=== PATIENT | female | born 1955 | race Caucasian/White ===

== ENCOUNTER 2021-09-18 13:44 | Inpatient (IN) | payer OTHER, MEDICARE ==
[~2021-09-18] VITALS: Ht 168.9 cm; Wt 86.4 kg
[2021-09-18] MEDS ORDERED: dilTIAZem 25 MG/5 ML VIAL IVP ONE (14:15)
--- NOTE | 2021-09-18 14:15 | PHYS DOC ---
General Adult EDM: Chief Complaint: CHEST PAIN HPI: HPI: 66-year-old female presents with rapid heart rate. The patient was feeling a little queasy this morning but she did not think much of it and went to work. While she was at work she felt more fatigued than usual and she was not doing anything strenuous. She went home for lunch and while she was there noticed that her heart rate felt fast. She thought she might go back to work but when she got up and prepared to go get ready she felt fatigued and it seemed like her heart rate was even faster. She decided come in for evaluation. She has no history of atrial fibrillation or any other cardiac condition. She denies diaphoresis or shortness of breath. The patient was feeling well prior to this episode. She takes medication for blood pressure and cholesterol. Review of Systems: Review of Systems: Constitutional: Denies fever or chills. Fatigue. Eyes: Denies change in visual acuity HENT: Denies nasal congestion or sore throat Respiratory: Denies cough or shortness of breath Cardiovascular: Chest pain GI: Denies abdominal pain, nausea, vomiting, bloody stools or diarrhea : Denies dysuria Musculoskeletal: Denies back pain or joint pain Integument: Denies rash Neurologic: Denies headache, focal weakness or sensory changes Endocrine: Denies polyuria or polydipsia Lymphatic: Denies swollen glands Psychiatric: Denies depression or anxiety Current Medications: Current Meds: Current Medications Medications (Trade) Dose Ordered Sig/Aaliyah Start Time Stop Time Status Last Admin Dose Admin Diltiazem HCl (Cardizem Iv Push) 20 mg 1X ONCE 09/18/21 14:15 09/18/21 14:16 Allergies: Allergies: Allergies Coded Allergies Type Severity Reaction Last Updated Verified No Known Drug Allergies 09/13/17 No Physical Exam: PE: Constitutional: Well developed, well nourished, no acute distress, non-toxic appearance. [] HENT: Normocephalic, atraumatic, bilateral external ears normal, oropharynx moist, no oral exudates, nose normal. [] Eyes: PERRLA, EOMI, conjunctiva normal, no discharge. [] Neck: Normal range of motion, no tenderness, supple, no stridor. [] Cardiovascular: Heart rate 131, irregular rhythm, no murmur [] Lungs & Thorax: Bilateral breath sounds clear to auscultation [] Abdomen: Bowel sounds normal, soft, no tenderness, no masses, no pulsatile masses. [] Skin: Warm, dry, no erythema, no rash. [] Back: No tenderness, no CVA tenderness. [] Extremities: No tenderness, no cyanosis, no clubbing, ROM intact, no edema. [] Neurologic: Alert and oriented X 3, normal motor function, normal sensory function, no focal deficits noted. [] Psychologic: Affect normal, judgement normal, mood normal. [] EKG: EKG: Irregular rhythm, rate 131, normal axis, no ST elevation or depression, atrial fibrillation. [] Radiology/Procedures: Radiology/Procedures: [] Impressions: EXAM: Chest, single view. HISTORY: Chest pain. COMPARISON: None. FINDINGS: A frontal view of the chest obtained. There is no infiltrate, pleural effusion or pneumothorax. The heart is normal in size. IMPRESSION: No acute pulmonary finding. Electronically signed by: Trina Sarmiento MD (09/18/2021 2:15 PM) [id number] DICTATED AND SIGNED BY: TRINA SARMIENTO MD DATE: 09/18/211414 CC: MARIA DOLORES BAILEY DO; GENEVIEVE COHN MD ~MTH0 0 Heart Score: C/O Chest Pain: Yes HEART Score for Chest Pain: HEART Score for Chest Pain Response (Comments) Value History Slighlty/Non-Suspicious 0 ECG Nonspecific Repolarizatio 1 Age > 65 2 Risk Factors 1 or 2 Risk Factors 1 Total 4 Risk Factors: Risk Factors: DM, Current or recent (<one month) smoker, HTN, HLP, family history of CAD, obesity. Risk Scores: Score 0 - 3: 2.5% MACE over next 6 weeks - Discharge Home Score 4 - 6: 20.3% MACE over next 6 weeks - Admit for Clinical Observation Score 7 - 10: 72.7% MACE over next 6 weeks - Early Invasive Strategies Course & Med Decision Making: Course & Med Decision Making Pertinent Labs and Imaging studies reviewed. (See chart for details) The patient was given 20 mg of Cardizem and her heart rate improved. We will start the patient on a Cardizem drip. The patient's urinalysis is positive for infection. I will treat her with Rocephin. I will admit the patient to the hospital for new onset atrial fibrillation. I spoke with the hospitalist, Dr. Norman and he has accepted the patient for admission. [] Dragon Disclaimer: Dragon Disclaimer: This electronic medical record was generated, in whole or in part, using a voice recognition dictation system. Departure Departure: Impression: Primary Impression: New onset a-fib Additional Impression: UTI (urinary tract infection) Qualified Codes: N30.01 - Acute cystitis with hematuria Disposition: ADMITTED INPATIENT Admitting Physician: Jakub Norman Condition: STABLE Referrals: GENEVIEVE COHN MD (PCP) MARIA DOLORES BAILEY DO Sep 18, 2021 14:15
--- NOTE | 2021-09-18 14:17 | RAD ---
EXAM: Chest, single view. HISTORY: Chest pain. COMPARISON: None. FINDINGS: A frontal view of the chest obtained. There is no infiltrate, pleural effusion or pneumotho rax. The heart is normal in size. IMPRESSION: No acute pulmonary finding. Electronically signed by: Trina Naqvi MD (09/18/2021 2:15 PM) [id number]
[2021-09-18 14:19] LABS: BASO # 0.1 x10^3/uL (0.0-0.2); BASO % 1 % (0-3); EOS # 0.1 x10^3/uL (0.0-0.7); EOS % 1 % (0-3); HEMATOCRIT 41.8 % (36.0-47.0); LYMPH # 2.6 x10^3/uL (1.0-4.8); LYMPH % 31 % (24-48); MEAN CORPUSCULAR HEMOGLOBIN 29 pg (25-35); MEAN CORPUSCULAR HGB CONC 34 g/dL (31-37); MEAN CORPUSCULAR VOLUME 87 fL (79-100); MONO # 0.6 x10^3/uL (0.0-1.1); MONO % 7 % (0-9); NEUT # 5.1 x10^3uL (1.8-7.7); NEUT % 60 % (31-73); PLATELET COUNT 285 x10^3/uL (140-400); RED BLOOD COUNT 4.83 x10^6/uL (3.50-5.40); RED CELL DISTRIBUTION WIDTH 14.4 % (11.5-14.5); WHITE BLOOD COUNT 8.5 x10^3/uL (4.0-11.0)
--- NOTE | 2021-09-18 14:24 | EKG ---
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
[2021-09-18 14:28] LABS: CALCIUM 9.4 mg/dL (8.5-10.1); CREATININE 1.1 mg/dL (0.6-1.0); GFR 49.4; POTASSIUM 3.8 mmol/L (3.5-5.1)
[2021-09-18] MEDS ORDERED: IV NORMAL SALINE 1,000ML 1,000 ML IV ONE (14:30)
[2021-09-18 14:34] LABS: ALBUMIN 3.8 g/dL (3.4-5.0); ALBUMIN/GLOBULIN RATIO 0.8 (1.0-1.7); TOTAL BILIRUBIN 0.3 mg/dL (0.2-1.0); TOTAL PROTEIN 8.3 g/dL (6.4-8.2)
[2021-09-18] MEDS ORDERED: ONDANSETRON PF 4 MG/2 ML VIAL. IVP PRN (15:00)
[2021-09-18] MEDS ORDERED: dilTIAZem VIAL 125 MG in IV NORMAL SALINE 100ML 100 ML IV PRN (15:00)
[2021-09-18 15:44] LABS: CLARITY,URINE CLEAR; COLOR,URINE COLORLESS
[2021-09-18 15:45] LABS: BACTERIA,URINE FEW /HPF (0-FEW); BILIRUBIN,URINE NEG (NEG); GLUCOSE,URINE NEG (NEG); NITRITE,URINE NEG (NEG); RBC,URINE 0 /HPF (0-2); SQUAMOUS EPITHELIAL CELL,UR OCC /LPF; UROBILINOGEN,URINE 0.2 mg/dL (0.2 mg/dL)
--- NOTE | 2021-09-18 16:29 | HP ---
DATE OF SERVICE: 09/18/2021 ADMIT DATE: 09/18/2021 HISTORY OF PRESENT ILLNESS: The patient is a 66-year-old female patient who presented to the Emergency Room with a complaint of racing heart. She is complaining of headache, chest heaviness, shortness of breath, felt the heart is racing, she also felt lightheaded. She felt a little queasy this morning, but she did not think much of it and went to work. While there, she felt more fatigued than usual, although she was not doing anything strenuous. She went home for lunch and while she was there, noted that her heart rate felt fast. She thought she might go back to work, but she got up to go get ready, she felt fatigued and seems that her heart rate was also even faster. She decided to come for evaluation to the Emergency Room, she was evaluated and was found to be in atrial fibrillation with rapid ventricular response. She had an EKG, which confirmed that, she had a loading dose of diltiazem that slowed her heart rate and was started on a Cardizem drip. She would be admitted for further evaluation and treatment. PAST MEDICAL HISTORY: Significant for hypertension, hyperlipidemia, obstructive sleep apnea. PAST SURGICAL HISTORY: Significant for tonsillectomy and had had colonoscopy x2. ALLERGIES: SHE IS ALLERGIC TO BELLADONNA. MEDICATIONS: She is on amlodipine 5 mg once a day, atorvastatin 20 mg once a day. She is on fish oil 2000 mg once a day. She is on multivitamin and CoQ10. FAMILY HISTORY: She has 5 sisters. Her older sister has atrial fibrillation, all of them have hypertension. Her father of emphysema at age of 68 and mother of colon cancer at the age of 76. SOCIAL HISTORY: She is , has 1 son from a previous marriage. She does not smoke. Drinks alcohol very occasionally. Does not use any drugs. 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 REVIEW OF SYSTEMS: The patient denied any blurring of vision, but she does have cataract to her right eye for which she is scheduled to be treated surgically. She denied any glaucoma or macular degeneration. Denied any earache, tinnitus or sensory deafness. Denied any nosebleed, stuffy nose or postnasal drip. Denied any sore throat, sore tongue, toothache, hoarseness of voice or difficulty swallowing. Denied any nausea, vomiting, diarrhea or constipation. Denied any hematemesis, melena or hematochezia. She denies any dysuria, frequency or hematuria. Denied any chest pain, shortness of breath, orthopnea or paroxysmal nocturnal dyspnea. Denied any cough, phlegm or hemoptysis. PHYSICAL EXAMINATION: GENERAL: When I saw her in the Emergency Room, she was resting slightly propped up in bed, in no apparent respiratory distress. There was no pallor, jaundice, cyanosis, or thyromegaly. No jugular venous distention. No lower limb edema. VITAL SIGNS: Her heart rate was initially 148, irregularly irregular, blood pressure is 153/94, temperature was 98.2, respiratory rate 20, and oxygen saturation was 95%. HEAD, EYES, EARS, NOSE, AND THROAT: Normocephalic, atraumatic. NECK: Supple. HEART: Showed regular first heart sound, normal second heart sound. No gallop, rub or murmur. CHEST: Clear to auscultation, no crepitation or rhonchi. ABDOMEN: Distended, soft, nontender. NEUROLOGIC: She was grossly intact. LABORATORY DATA: Showed a white cell count of 8500, hemoglobin 14, hematocrit 42, MCV 87 and platelet count of 285,000. Her chemistry showed a serum sodium 141, potassium 3.8, chloride 106, bicarbonate 23, anion gap of 12, BUN 15, creatinine 1.1. Estimated GFR was 49 mL per minute. His glucose 136, calcium was 9.4. Total bilirubin, AST, ALT normal, alkaline phosphatase were high. Her total protein was 8.3, albumin was 3.8. Her EKG showed that she had irregularly irregular heart rate of 151 with normal axis, no ST segment elevation or depression. Her chest x-ray showed that there is no infiltrate, pleural effusion, or pneumothorax. The heart size is normal. ASSESSMENT AND PLAN: The patient was admitted with a new onset of atrial fibrillation, for which she received a bolus of Cardizem will be started on a Cardizem drip. She probably needs to be started on anticoagulation. Other medical problems include hypertension, hyperlipidemia, obstructive sleep apnea. We will reconcile all her medications and check her thyroid function tomorrow and consult the windows server architect for further evaluation and treatment. KAITLIN/IDALIA/AYAAN DR: Omari TID: [id number]
--- NOTE | 2021-09-18 19:10 | NUR ---
The patient, GAUDENCIO NUNEZ, 66 y/o, F admitted by YU RUIZ MD, was given written information regarding hospital policies, unit procedures and contact persons. Valuables were checked and logged. Call light at bedside.
[2021-09-18 19:26] VITALS: BP 136/95
[2021-09-18] MEDS ORDERED: OMEG-152 PO (19:49)
[2021-09-18] MEDS ORDERED: AMLO5TAB4 PO (19:49)
[2021-09-18] MEDS ORDERED: LOVA20TA2 PO (19:49)
[2021-09-18] MEDS ORDERED: UBID200C7 PO (19:49)
[2021-09-18 20:00] VITALS: BP 130/88
--- NOTE | 2021-09-18 20:08 | NUR ---
Nursing Note Pt assisted to toilet fully ambulatory, pleasant alert and oriented. Lines and IV intact. Voided no difficulty.
[2021-09-18 21:00] VITALS: BP 128/80
[2021-09-18] MEDS ORDERED: ATORVASTATIN CALCIUM 10 MG TABLET. PO SCH (21:00)
[2021-09-18] MEDS ORDERED: OMEGA-3 FATTY ACIDS/FISH OIL 1,000 MG CAPSULE. PO SCH (21:00)
[2021-09-18] MEDS: APIXABAN 5 MG TABLET. PO SCH (21:16)
[2021-09-18 22:00] VITALS: BP 118/74
[2021-09-18 23:00] VITALS: BP 127/73
[2021-09-19] VITALS (14 sets, daily range): BP systolic 106–120; BP diastolic 58–82
--- NOTE | 2021-09-19 05:26 | EKG ---
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
--- NOTE | 2021-09-19 05:53 | NUR ---
[facility] cardio consulted at this time with their answering service.
--- NOTE | 2021-09-19 05:59 | NUR ---
Pt has converted to NSR. EKG confirmed.
--- NOTE | 2021-09-19 06:31 | PDOC2 ---
JAMES LITTLEJOHN ANAESTHESIOLOGIST 09/19/21 0631: CARDIAC CONSULT DATE OF CONSULT DOS: DATE: 09/19/21 TIME: 06:26 REASON FOR CONSULT Reason for Consult New AFIB with RVR REFERRING PHYSICIAN Referring Physician Dr. Norman SOURCE Source: Chart review, Patient HPI History of Present Illness This is a 66 yo female who presented secondary to palpitations, rapid heart beat. Was noted in AFIB, which prompted this consult. Patient reports she went to work yesterday as usual. Mid morning, felt her heart beating fast. Went home and had lunch. Reports she stood up to go back to work and her palpitations became more intense and had pressure in her central chest so she came to the ED for further evaluation and treatment. No diaphoresis or SOA. No prior h/o CAD or known arrhythmias. Does reports feeling her heart beat fast occasionally in the past, but nothing significant or sustaining. She converted back to SR overnight on Cardizem gtt and has been maintaining. Reports feeling well this morning. No recent illness or fevers. Did have COVID back in April but did not require hospitalization or oxygenation. PAST MEDICAL HISTORY Cardiovascular: HTN, hyperipidemia PAST SURGICAL HISTORY Past Surgical History: Tonsillectomy FAMILY HISTORY Family History: Cancer (colon), Stroke, Other (AFIB, sister) SOCIAL HISTORY Smoke: No ALCOHOL: none Drugs: None CURRENT MEDICATIONS Current Medications Current Medications Diltiazem HCl (Cardizem Iv Push) 20 mg 1X ONCE IVP Last administered on 09/18/21at 14:28; Start 09/18/21 at 14:15; Stop 09/18/21 at 14:16; Status DC Sodium Chloride 1,000 ml @ 1,000 mls/hr 1X ONCE IV Last administered on 09/18/21at 14:20; Start 09/18/21 at 14:30; Stop 09/18/21 at 15:29; Status DC Diltiazem HCl 125 mg/Sodium Chloride 125 ml @ 5 mls/hr CONT PRN IV PER PROTOCOL Last administered on 09/18/21at 15:11; Start 09/18/21 at 15:00 Ondansetron HCl (Zofran) 4 mg PRN Q4HRS PRN IVP NAUSEA/VOMITING; Start 09/18/21 at 15:00; Stop 09/19/21 at 14:59 Apixaban (Eliquis) 5 mg BID PO Last administered on 09/18/21at 21:16; Start 09/18/21 at 21:00 Amlodipine Besylate (Norvasc) 5 mg DAILY PO ; Start 09/19/21 at 09:00 Atorvastatin Calcium (Lipitor) 5 mg QHS PO Last administered on 09/18/21at 21:16; Start 09/18/21 at 21:00 Fish Oil (Fish Oil) 2,000 mg QHS PO Last administered on 09/18/21at 21:16; Start 09/18/21 at 21:00 Coenzyme Q10 (Coenzyme Q10) 200 mg DAILY PO ; Start 09/19/21 at 09:00 Active Scripts Active Reported Lovastatin 20 Mg Tablet 20 Mg PO QHS Fish Oil 1,000 Mg Softgel ([place]-3/Dha/Epa/Fish Oil) 1 Each Capsule 2 Each PO QHS Co Q-10 (Ubidecarenone) 200 Mg Capsule 200 Mg PO DAILY Norvasc (Amlodipine Besylate) 5 Mg Tablet 5 Mg PO DAILY ALLERGIES Allergies: Coded Allergies: No Known Drug Allergies (Unverified , 09/13/17) ROS Review of Systems 14 point ROS conducted with pertinent positives noted above in hPI PHYSICAL EXAM General: Alert, Oriented X3, Cooperative, No acute distress HEENT: Atraumatic Lungs: Clear to auscultation Heart: Regular rate Abdomen: Soft, No tenderness Skin: No breakdown Neuro: Normal speech, Sensation intact Psych/Mental Status: Mental status NL, Mood NL MUSCULOSKELETAL: Osteoarthritic changes both hands VITALS Vital Signs Vital Signs Date Time Temp Pulse Resp B/P (MAP) Pulse Ox O2 Delivery O2 Flow Rate FiO2 09/19/21 06:00 67 14 108/66 (80) 93 Room Air 09/18/21 19:26 98.2 LABS LABS Laboratory Tests Test 09/18/21 13:51 09/18/21 14:03 09/18/21 15:05 09/18/21 15:10 White Blood Count 8.5 x10^3/uL (4.0-11.0) Red Blood Count 4.83 x10^6/uL (3.50-5.40) Hemoglobin 14.0 g/dL (12.0-15.5) Hematocrit 41.8 % (36.0-47.0) Mean Corpuscular Volume 87 fL (79-100) Mean Corpuscular Hemoglobin 29 pg (25-35) Mean Corpuscular Hemoglobin Concent 34 g/dL (31-37) Red Cell Distribution Width 14.4 % (11.5-14.5) Platelet Count 285 x10^3/uL (140-400) Neutrophils (%) (Auto) 60 % (31-73) Lymphocytes (%) (Auto) 31 % (24-48) Monocytes (%) (Auto) 7 % (0-9) Eosinophils (%) (Auto) 1 % (0-3) Basophils (%) (Auto) 1 % (0-3) Neutrophils # (Auto) 5.1 x10^3uL (1.8-7.7) Lymphocytes # (Auto) 2.6 x10^3/uL (1.0-4.8) Monocytes # (Auto) 0.6 x10^3/uL (0.0-1.1) Eosinophils # (Auto) 0.1 x10^3/uL (0.0-0.7) Basophils # (Auto) 0.1 x10^3/uL (0.0-0.2) Sodium Level 141 mmol/L (136-145) Potassium Level 3.8 mmol/L (3.5-5.1) Chloride Level 106 mmol/L (98-107) Carbon Dioxide Level 23 mmol/L (21-32) Anion Gap 12 (6-14) Blood Urea Nitrogen 15 mg/dL (7-20) Creatinine 1.1 mg/dL (0.6-1.0) Estimated GFR (Cockcroft-Gault) 49.4 BUN/Creatinine Ratio 14 (6-20) Glucose Level 136 mg/dL (70-99) Calcium Level 9.4 mg/dL (8.5-10.1) Total Bilirubin 0.3 mg/dL (0.2-1.0) Aspartate Amino Transf (AST/SGOT) 20 U/L (15-37) Alanine Aminotransferase (ALT/SGPT) 37 U/L (14-59) Alkaline Phosphatase 128 U/L (46-116) Troponin I High Sensitivity 7 ng/L (4-50) Total Protein 8.3 g/dL (6.4-8.2) Albumin 3.8 g/dL (3.4-5.0) Albumin/Globulin Ratio 0.8 (1.0-1.7) Urine Collection Type Clean catch Urine Color Colorless Urine Clarity Clear Urine pH 7.0 Urine Specific [place] 1.015 Urine Protein Neg (NEG-TRACE) Urine Glucose (UA) Neg mg/dL (NEG) Urine Ketones (Stick) Neg mg/dL (NEG) Urine Blood Neg (NEG) Urine Nitrite Neg (NEG) Urine Bilirubin Neg (NEG) Urine Urobilinogen Dipstick 0.2 mg/dL (0.2 mg/dL) Urine Leukocyte Esterase Small (NEG) Urine RBC 0 /HPF (0-2) Urine WBC 11-20 /HPF (0-4) Urine Squamous Epithelial Cells Occ /LPF Urine Bacteria Few /HPF (0-FEW) Coronavirus (COVID-19)(PCR) Not detected (NOT DETECTD) SARS-CoV-2 Antigen (Rapid) Negative (NEGATIVE) Test 09/18/21 21:30 09/18/21 23:09 Troponin I High Sensitivity 9 ng/L (4-50) 9 ng/L (4-50) ASSESSMENT/PLAN Assessment/Plan 1. Palpitations, new onset AFIB with RVR. Convert back to SR on Cardizem gtt and is maintaining 2. Hypertension; controlled 3. Hyperlipidemia 4. LORETTA, untreated Recommendations TSH, lipids Add metoprolol for rate control. Titrate off Cardizem gtt Eliquis for stroke prophylaxis Outpatient echo and event monitor to guide therapy as arranged Consider outpatient ischemic evaluation Needs treatment of LORETTA Follow up in our office with Dr. Lopes as arranged. ALANA LOPES MD 09/20/21 0527: CARDIAC CONSULT ASSESSMENT/PLAN Assessment/Plan Patient seen and examined. Agree with ASH CONVEYOR OPERATOR's assessment and plan. Atrial fibrillation new onset, presently back in SR Continue eliquis for stroke prophylaxis Plan outpatient echo, event monitor and ischemic evaluation Thank you for your consultation JAMES LITTLEJOHN APRN Sep 19, 2021 06:31 ALANA LOPES MD Sep 20, 2021 05:27
[2021-09-19] MEDS: APIXABAN 5 MG TABLET. PO SCH (08:48)
[2021-09-19] MEDS ORDERED: amLODIPine BESYLATE 5 MG TABLET PO SCH (09:00)
[2021-09-19] MEDS ORDERED: UBIDECARENONE 50 MG CAPSULE. PO SCH (09:00)
[2021-09-19] MEDS ORDERED: METOPROLOL TART IMMED RELEASE 25 MG TABLET. PO SCH (09:30)
[2021-09-19] MEDS ORDERED: METO25TA4 PO (13:56)
[2021-09-19] MEDS ORDERED: APIX5TAB3 PO (13:56)
--- NOTE | 2021-09-19 14:20 | NUR ---
Cardizem gtt stopped this AM. PO metoprolol initiated. Pt converted to normal sinus rhythm overnight. Discharge orders placed per Dr. Norman. Follow up appointments and heart monitor discussed with pt. Discharge education provided. IV discontinued. Belongings sent with pt. Pt discharged home with @ [id number].
--- NOTE | 2021-09-19 14:20 | DS ---
DATE OF DISCHARGE: 09/19/2021 HOSPITAL COURSE: The patient is a 66-year-old female patient who presented to the Emergency Room with a complaint of racing heart. She did complain of headache, chest heaviness, shortness of breath. The heart is racing. She also felt lightheaded. She felt a little queasy the morning of admission, but she did not think much of it and went to work. While there, she felt more fatigued than usual and basically decided to come to the Emergency Room where she was found to be in atrial fibrillation with rapid ventricular response. She was treated with a loading dose of Cardizem and Cardizem drip, started on apixaban for stroke prevention. Eventually, her heart rate is well controlled and she is actually reverted to sinus rhythm. She was switched to metoprolol and as she remained hemodynamically stable, a decision was made to discharge her home to continue on metoprolol 25 mg twice a day and apixaban 5 mg twice a day for stroke prevention. PHYSICAL EXAMINATION: GENERAL: When I saw her this afternoon, she looked well and was clearly in no apparent respiratory distress. No pallor, jaundice, cyanosis or thyromegaly. No jugular venous distention. No limb edema. VITAL SIGNS: Her heart rate was 72, blood pressure was 106/58, temperature was 97.6, respiratory rate was 16 and oxygen saturation was 93% on room air. HEAD, EYES, EARS, NOSE, AND THROAT: Normocephalic, atraumatic. NECK: Supple. HEART: Showed normal first and second heart sounds. No gallop, rub or murmur. CHEST: Clear to auscultation. No crepitation or rhonchi. ABDOMEN: Distended, soft, nontender. No guarding or rigidity. No organomegaly. All hernial orifice intact. Bowel sounds normal. NEUROLOGIC: She was grossly intact. LABORATORY DATA: Showed a white cell count of 8500, hemoglobin 14, hematocrit 42, MCV 87 and platelet count 285,000. Serum sodium was 141, potassium 3.8, chloride 106, bicarbonate 23, anion gap of 12, BUN 15, creatinine 1.1. Estimated GFR was 49 mL per minute. His glucose 136, calcium was 9.4. Total bilirubin, AST, ALT, alkaline phosphatase were normal. Total protein 8.3, albumin was 3.8. DISCHARGE MEDICATIONS: She was discharged home to continue on apixaban 5 mg twice a day and metoprolol tartrate 25 mg twice a day, amlodipine 5 mg once a day, lovastatin 20 mg daily at bedtime, omega 3 fatty acids 2 capsules daily at bedtime and CoQ10 200 mg once a day. FINAL DISCHARGE DIAGNOSES: 1. Atrial fibrillation with rapid ventricular response, now rate controlled and well anticoagulated. 2. Hypertension. 3. Hyperlipidemia. 4. Obstructive sleep apnea. She was seen by the Cardiology team and plan is for her to be seen as an outpatient for an echocardiogram and event monitor and to guide therapy. There is also consideration for outpatient ischemic evaluation. I gave an instruction to see if her primary care physician can arrange for her to have a sleep study. KAITLIN/ROSA DR: Omari TID: [id number]
[2021-09-19 16:42] LABS: THYROID STIM HORMONE (TSH) 2.609 uIU/mL (0.358-3.740)
== END 2021-09-19 14:15 | disposition home or self-care (01) | DRG 309 ==
LOC: ER 13:44 → ICU 14:51 → ER 19:02
PROVIDERS: ADMIT Internal Medicine; ATTEND Internal Medicine
DX: I48.91 Unspecified atrial fibrillation (principal); N30.01 Acute cystitis with hematuria; E78.5 Hyperlipidemia, unspecified; G47.33 Obstructive sleep apnea (adult) (pediatric); I10 Essential (primary) hypertension; Z80.0 Family history of malignant neoplasm of digestive organs; Z82.3 Family history of stroke; Z82.49 Family history of ischemic heart disease and other diseases of the circulatory system; Z82.5 Family history of asthma and other chronic lower respiratory diseases; Z88.8 Allergy status to other drugs, medicaments and biological substances; Z20.822 Contact with and (suspected) exposure to COVID-19
CPT/HCPCS: 36415; 71045; 80053; 80061; 81001; 84443; 84484; 85025; 87086; 87426; 93005; 96361; 96365; 96366; 96376; J3490; U0003; 99285-25; J7030

== ENCOUNTER → 2021-11-14 | Outpatient (CLI) | payer OTHER, MEDICARE ==
[2021-09-19 12:44] VITALS: BP 106/58
[~2021-11-14] MED LIST: AMLO5TAB4 PO; APIX5TAB3 PO; LOVA20TA2 PO; METO25TA4 PO; OMEG-152 PO; UBID200C7 PO
--- NOTE | 2021-11-14 19:40 | CARD ---
MR#: [id number] Date of Study: 11/14/2021 Ordering Physician: ALANA BARCLAY, Referring Physician: ALANA BARCLAY, Tech: Michelle Hull [facility] APPROVED REPORT EXAM: Two-dimensional and M-mode echocardiogram with Doppler and color Doppler. Other Information Quality : AverageHR: 63bpm INDICATION Atrial Fibrillation RISK FACTORS Hypertension Hyperlipidemia 2D DIMENSIONS RVDd3.8 (2.9-3.5cm)Left Atrium(2D)3.2 (1.6-4.0cm) IVSd1.0 (0.7-1.1cm)Aortic Root(2D)3.3 (2.0-3.7cm) LVDd4.5 (3.9-5.9cm)LVOT Diameter2.0 (1.8-2.4cm) PWd1.0 (0.7-1.1cm)LVDs3.3 (2.5-4.0cm) FS (%) 26.5 %SV49.2 ml LVEF(%)51.9 (>50%) Aortic Valve AoV Peak Amor.154.0cm/sAoV VTI32.4cm AO Peak GR.9.5mmHgLVOT Peak Amor.132.2cm/s LVOT VTI 29.40cmAO Mean GR.5mmHg CORAL (VMAX)2.63yr5SPZ (VTI)2.83cm2 Mitral Valve MV E Xrtwpkah01.7cm/sMV E Peak Gr.3mmHg MV DECEL [id number] A Qupwbkqi57.2cm/s MV E Mean Gr.1mmHgE/A Ratio0.9 Pulmonary Valve PV Peak Zyfavfkp35.1cm/sPV Peak Grad.4mmHg Tricuspid Valve TR P. Jmvdptgz027pu/sRAP [id number] TR Peak Gr.22yyWxRSSZ72lzBp LEFT VENTRICLE The left ventricle is normal size. There is normal left ventricular wall thickness. The left ventricu lar systolic function is normal and the ejection fraction is within normal range. The Ejection Fracti on is 50-55%. There is normal LV segmental wall motion. Transmitral Doppler flow pattern is Grade II- pseudonormal filling dynamics. RIGHT VENTRICLE The right ventricle is normal size. There is normal right ventricular wall thickness. The right ventr icular systolic function is normal. ATRIA The left atrium size is normal. The right atrium size is normal. The interatrial septum is intact wit h no evidence for an atrial septal defect or patent foramen ovale as noted on 2-D or Doppler imaging. AORTIC VALVE The aortic valve is normal in structure and function. Doppler and Color Flow revealed trace aortic re gurgitation. There is no significant aortic valvular stenosis. Calculated aortic valve area is 2.5 cm 2 with maximum pressure gradient of 10 mmHg and mean pressure gradient of 5 mmHg. MITRAL VALVE The mitral valve is normal in structure and function. There is no evidence of mitral valve prolapse. There is no mitral valve stenosis. Doppler and Color Flow revealed no mitral valve regurgitation note d. TRICUSPID VALVE The tricuspid valve is normal in structure and function. Doppler and Color Flow revealed trace tricus pid regurgitation with an estimated PAP of 29 mmHg. There is no tricuspid valve stenosis. PULMONIC VALVE Doppler and Color Flow revealed mild pulmonic valvular regurgitation. There is no pulmonic valvular s tenosis. GREAT VESSELS The aortic root is normal in size. The ascending aorta is normal in size. The IVC is normal in size a nd collapses >50% with inspiration. PERICARDIAL EFFUSION There is no evidence of significant pericardial effusion. Critical Notification Critical Value: No <Conclusion> The left ventricular systolic function is normal and the ejection fraction is within normal range. Th e Ejection Fraction is 50-55%. There is normal LV segmental wall motion. Signed by : Lorenzo Harper, Electronically Approved : 11/14/2021 19:40:33
== END ==
LOC: ECHO 08:04
PROVIDERS: ATTEND Internal Medicine Cardiovascular Disease
DX: I37.1 Nonrheumatic pulmonary valve insufficiency (principal); I48.91 Unspecified atrial fibrillation
CPT/HCPCS: 93306

== ENCOUNTER → 2022-02-09 | Outpatient (CLI) | payer MEDICARE ==
[2021-09-19 12:44] VITALS: BP 106/58
[~2022-02-09] MED LIST changes: +DOCO1CAP2 PO; +MULT-445 PO
== END ==
LOC: LAB 08:53
PROVIDERS: ATTEND Ophthalmology
DX: Z01.812 Encounter for preprocedural laboratory examination (principal); Z98.41 Cataract extraction status, right eye
CPT/HCPCS: U0003

== ENCOUNTER → 2022-02-12 | Day surgery (SDC) | payer MEDICARE ==
[~2022-02-12] MED LIST changes: +ACETAMINOPHEN 500 MG TABLET PO PRN; +BALANCED SALT IRRIG SOLN NO.2 500 ML IO ONE; +BENZONATATE 100 MG CAPSULE. PO PRN; +BRIMONIDINE 0.2% OPHTH SOLUTION 5ML BOTTLE. OD ONE; +CEFUROXIME OPHTH 4 MG/0.4 ML SYRINGE. OD ONE; +CHONDROIT-SOD-HYALURONATE KIT. OD ONE; +GLYCOPYRROLATE 1 MG/5 ML VIAL. ONE; +IBUPROFEN 200 MG TABLET PO PRN; +IV RINGERS SOLUTION,LACTATED 1,000 ML IV SCH; +LIDO/EPI IN BSS OPHTH 2.7 ML SYRINGE. OD ONE; +LIDOCAINE 2% JELLY 6ML IN APPLICATOR. ONE; +MIDAZOLAM HCL PF 2 MG/2 ML VIAL. IV ONE; +MIDAZOLAM HCL PF 2 MG/2 ML VIAL. ONE; +ONDANSETRON PF 4 MG/2 ML VIAL. IV PRN; +PHENYLEPHRINE 10% OPHTH SOLUTION 5ML BOTTLE. OD PRN; +POVIDONE-IODINE 5% OPHTH SOLUTION 30ML BOTTLE. OD ONE; +POVIDONE-IODINE 5% OPHTH SOLUTION 30ML BOTTLE. OD PRN; +PROPARACAINE 0.5% OPHTH SOLUTION 15ML BOTTLE. OD ONE; +PROPARACAINE 0.5% OPHTH SOLUTION 15ML BOTTLE. OD PRN; +prednisoLONE ACETATE 1% OPHTH SUSPENSION 5ML BOTTLE. OD ONE
[2022-02-12] MEDS: TROPICAMIDE 1% OPHTH SOLUTION 15ML BOTTLE. OD SCH ×3 (07:29→07:46)
[2022-02-12] MEDS: KETOROLAC TROMETHAMINE 0.5% OPHTH SOLUTION BOTTLE. OD SCH ×2 (07:30→07:39)
[2022-02-12] MEDS: PHENYLEPHRINE 2.5% OPHTH SOLUTION 2ML BOTTLE. OD SCH ×3 (07:30→07:46)
[2022-02-12] MEDS: TOBRAMYCIN 0.3% OPHTH SOLUTION 5ML BOTTLE. OD SCH ×2 (07:30→07:39)
--- NOTE | 2022-02-12 08:15 | PDOC4 ---
SURGEON: Venkatesh Jennings MD Date of Procedure: 02/12/22 PREOP Diagnosis Visually significant cataract: Right Eye OD POSTOP Diagnosis Same PROCEDURE: Phaco w/ posterior chamber IOL: Right Eye OD ANESTHESIA x Deep forniceal periocular 2% Lidocaine jelly Elba/retro bulbar block with 2% Lidocaine with 0.5% Marcaine DESCRIPTION OF PROCEDURE The risks, benefits, and alternatives were discussed with the patient who elected to proceed. Informed consent was obtained in writing and placed in the chart After anesthetizing the eye topically, the patient was taken to the operating room, and the operative eye was prepped and draped in the usual sterile fashion for ocular surgery. A wire lid speculum was placed. A 1-mm clear corneal paracentesis incision was created with the side-port blade at a position three o'clock hours clockwise from the temporal cornea. Then, 1% non-preserved Lidocaine with epinephrine was injected into the anterior chamber followed by viscoelastic. Cotton-tipped applicators were used to stabilize the globe, and a 2.4 mm keratome was used to create a self-sealing incision in clear cornea at the temporal limbus. The Utrata forceps were used to create a continuous curvilinear capsulorrhexis. Balanced saline solution was injected via cannula beneath the capsulorrhexis edge to hydrodissect the lens nucleus and cortex from the lens capsule. The phacoemulsification handpiece and a chopping instrument were then used to remove the lens nucleus. The remaining epinuclear material and cortex were removed with the irrigation/aspiration handpiece. Viscoelastic was used to re-inflate the lens capsule, and the intraocular lens was injected directly into the capsular bag. The corneal wound edges were hydrated with balanced salt solution on a cannula and the irrigation/aspiration handpiece was used to extract the remaining viscoelastic. Cefuroxime 0.1mg/ml / Vigamox 0.5% was injected into the anterior chamber intracamerally. The wounds were inspected and found to be watertight at an appropriate intraocular pressure. Topical antibiotic drops were placed on the corneal surface. LRI: No If Yes, Number [] [place] [] Length [] degrees Depth [] microns Incision [place]: 180 Toric Lens [place] [] Patch/shield with Maxitrol/Tobradex/Erythromycin ointment: Yes No Co-managed patients/postop examination stable for co-management with referring doctor. EBL EBL: None SPECIMANS COLLECTED Specimens Collected: None VENKATESH JENNINGS MD February 12, 2022 08:15
[2022-02-12 08:24] VITALS: BP 129/75
== END | disposition home or self-care (01) ==
LOC: SURG 07:05
PROVIDERS: ATTEND Ophthalmology
DX: H25.11 Age-related nuclear cataract, right eye (principal); G47.33 Obstructive sleep apnea (adult) (pediatric); I10 Essential (primary) hypertension; E78.5 Hyperlipidemia, unspecified; Z72.89 Other problems related to lifestyle; Z79.899 Other long term (current) drug therapy; Z98.890 Other specified postprocedural states; Z88.8 Allergy status to other drugs, medicaments and biological substances; Z80.0 Family history of malignant neoplasm of digestive organs; Z82.5 Family history of asthma and other chronic lower respiratory diseases; Z82.3 Family history of stroke
CPT/HCPCS: 66984; J2250; J3490; V2632